=== PATIENT | male | born 1950 | race Caucasian/White ===

== ENCOUNTER 2023-07-19 00:56 | Emergency (ER) | payer MEDICARE ==
[~2023-07-19] VITALS: Ht 167.6 cm; Wt 88.5 kg
[2023-07-19 01:16] LABS: BASOPHILS ABSOLUTE AUTO 0.04 K/mm3 (0.00-0.23); BASOPHILS PERCENT AUTO 0 % (0-2); EOSINOPHILS ABSOLUTE AUTO 0.31 K/mm3 (0.00-0.68); EOSINOPHILS PERCENT AUTO 4 % (0-6); Hematocrit 37.6 % (37.0-53.0); Hemoglobin 12.3 g/dL (13.5-17.5); IMMATURE GRAN ABSOLUTE AUTO 0.02 K/mm3 (0.00-0.10); IMMATURE GRAN PERCENT AUTO 0 % (0-1); LYMPHOCYTES ABSOLUTE AUTO 3.06 K/mm3 (0.84-5.20); LYMPHOCYTES PERCENT AUTO 34 % (21-46); MONOCYTES ABSOLUTE AUTO 0.88 K/mm3 (0.16-1.47); MONOCYTES PERCENT AUTO 10 % (4-13); Mean Corpuscular HGB 31.7 pg (26.0-34.0); Mean Corpuscular HGB Conc 32.7 g/dL (31.5-36.5); Mean Corpuscular Volume 97 fL (80-100); Mean Platelet Volume 11.2 fL (9.1-12.4); NEUTROPHILS ABSOLUTE AUTO 4.63 K/mm3 (1.96-9.15); NEUTROPHILS PERCENT AUTO 52 % (41-73); Platelet Count 244 K/mm3 (150-400); RDW Coefficient Variation 13.4 % (11.7-14.2); RDW Standard Deviation 47.7 fL (35.1-46.3); Red Blood Cell Count 3.88 M/mm3 (4.30-5.90); White Blood Cell Count 8.94 K/mm3 (4.00-11.30)
[2023-07-19 01:33] LABS: Albumin/Globulin Ratio 1.3 (0.8-1.8); Bilirubin, Total 0.4 mg/dL (0.1-1.0); Bun/Creatinine Ratio 18.7 (12.0-20.0); Calcium, Blood 8.6 mg/dL (8.5-10.1); Creatinine, Blood 1.39 mg/dL (0.60-1.20); Globulin, Blood 3.1 g/dL (2.2-4.0); Potassium, Blood 4.3 mmol/L (3.5-5.5); Total Protein, Blood 7.1 g/dL (6.4-8.2)
[2023-07-19] MEDS ORDERED: ATOR80 PO (01:39)
[2023-07-19] MEDS ORDERED: Aspir 8181 MG PO (01:40)
[2023-07-19] MEDS ORDERED: METO50ER PO (01:42)
[2023-07-19] MEDS ORDERED: EZET10 PO (01:42)
[2023-07-19] MEDS ORDERED: LISI20 PO (01:43)
[2023-07-19] MEDS ORDERED: CLOP75 PO (01:43)
[2023-07-19] MEDS ORDERED: ALLO300 PO (01:43)
[2023-07-19] MEDS ORDERED: NITR.4SL SL (01:44)
[2023-07-19 02:21] LABS: Magnesium, Blood 2.2 mg/dL (1.6-2.4); Phosphorus, Blood 3.6 mg/dL (2.5-4.9)
[2023-07-19] MEDS ORDERED: FAMO20 PO (06:07)
[2023-07-19] MEDS ORDERED: ALMACONE SUSPE355 ML PO (06:07)
[2023-07-19 06:28] VITALS: BP 134/72
== END 2023-07-19 06:24 | disposition home or self-care (01) ==
LOC: ER 00:56
PROVIDERS: Emergency Medicine
DX: R07.89 Other chest pain (principal); I25.2 Old myocardial infarction
CPT/HCPCS: 71046; 71260; 80053; 83690; 83735; 84100; 84484; 85025; 85379; 93005; 93010; 99285-25; A9270; Q9967

== ENCOUNTER 2023-07-22 05:48 | Observation (INO) | payer MEDICARE ==
[~2023-07-22] VITALS: Ht 167.6 cm; Wt 88.5 kg
[~2023-07-22 05:48] MED LIST: ALLO300 PO; ALMACONE SUSPE355 ML PO; ATOR80 PO; Aspir 8181 MG PO; CLOP75 PO; EZET10 PO; FAMO20 PO; LISI20 PO; METO50ER PO; NITR.4SL SL
[2023-07-22 07:36] LABS: BASOPHILS ABSOLUTE AUTO 0.04 K/mm3 (0.00-0.23); BASOPHILS PERCENT AUTO 1 % (0-2); EOSINOPHILS ABSOLUTE AUTO 0.21 K/mm3 (0.00-0.68); EOSINOPHILS PERCENT AUTO 3 % (0-6); Hematocrit 38.6 % (37.0-53.0); Hemoglobin 12.5 g/dL (13.5-17.5); IMMATURE GRAN ABSOLUTE AUTO 0.02 K/mm3 (0.00-0.10); IMMATURE GRAN PERCENT AUTO 0 % (0-1); LYMPHOCYTES ABSOLUTE AUTO 2.45 K/mm3 (0.84-5.20); LYMPHOCYTES PERCENT AUTO 30 % (21-46); MONOCYTES ABSOLUTE AUTO 0.61 K/mm3 (0.16-1.47); MONOCYTES PERCENT AUTO 7 % (4-13); Mean Corpuscular HGB 31.5 pg (26.0-34.0); Mean Corpuscular HGB Conc 32.4 g/dL (31.5-36.5); Mean Corpuscular Volume 97 fL (80-100); Mean Platelet Volume 11.2 fL (9.1-12.4); NEUTROPHILS ABSOLUTE AUTO 4.98 K/mm3 (1.96-9.15); NEUTROPHILS PERCENT AUTO 60 % (41-73); Platelet Count 224 K/mm3 (150-400); RDW Coefficient Variation 13.2 % (11.7-14.2); RDW Standard Deviation 47.7 fL (35.1-46.3); Red Blood Cell Count 3.97 M/mm3 (4.30-5.90); White Blood Cell Count 8.31 K/mm3 (4.00-11.30)
[2023-07-22 08:03] LABS: Albumin, Blood 3.9 g/dL (3.4-5.0); Albumin/Globulin Ratio 1.2 (0.8-1.8); Bilirubin, Total 0.7 mg/dL (0.1-1.0); Bun/Creatinine Ratio 16.3 (12.0-20.0); Calcium, Blood 8.5 mg/dL (8.5-10.1); Creatinine, Blood 1.35 mg/dL (0.60-1.20); Globulin, Blood 3.2 g/dL (2.2-4.0); Magnesium, Blood 2.4 mg/dL (1.6-2.4); Potassium, Blood 4.5 mmol/L (3.5-5.5); Total Protein, Blood 7.1 g/dL (6.4-8.2)
[2023-07-22 08:31] LABS: Influenza A, PCR NEGATIVE (NEGATIVE); Influenza B, PCR NEGATIVE (NEGATIVE); Resp Syncytial Virus, PCR NEGATIVE (NEGATIVE); SARS-Cov-2 (COVID-19) PCR, MMC NEGATIVE (NEGATIVE)
[2023-07-22 15:18] VITALS: BP 185/81
--- NOTE | 2023-07-22 15:30 | NUR ---
Pt arrived from ED via wheelchair, a/ox4, pleasant and coopertive with care, follows commands well, up to bed indep, lungs are clear t/o, reports if he lays flat he starts coughing, and is still bringing up blood, on r/a, sats are over 90, hrr, bounding, no edema noted at this time, reports his feet do swell, maría hose placed on him, ppp+2, cap refill <3sec, vs stable, afebrile, iv site to rac is clear and patent, btx4, abd flat soft nontender, voids without diff, skin c/w/d, maew, radha, call light in reach.
--- NOTE | 2023-07-22 17:50 | NUR ---
"Spiritual care | Pt. request. pt. is awake in bed and welcomes my visit. Pt. is unsettled about waiting for results from the doctor. Seek to normalize the Pt. expereince as I listen with empathy and a calming presence. Pt. displays evidence of being reasonable. Shift the focus of the visit toward a life review, focusing on the Pts. service in the . Pastoral certified addiction counselor and support is given. Prayed with the Pt. Pt. verbalized gratitude for the spiritual care visit."
--- NOTE | 2023-07-22 18:24 | NUR ---
pt doing ok, no complaints of c.p. or coughing up blood at this time. no acute changes, finished stress test, ordered a tray after speaking with Dr. Stringer. call light in reach.
[2023-07-22 20:09] VITALS: BP 158/66
[2023-07-23 03:55] VITALS: BP 129/72
--- NOTE | 2023-07-23 04:54 | NUR ---
SHIFT SUMMARY. NO ACUTE CHANGES.PATIENT A/O X4, PLEASANT AND COOPERATIVE WITH CARE. PATIENT INDEPENDENT IN ROOM. DENIES CHEST PAIN/PRESSURE/TIGHTNESS. PATIENT SLEPT ON AND OFF T/O NIGHT, RESPIRATIONS EQUAL AND UNLABORED. PAIN ASSESSED-PATIENT DENIES PAIN. TELE IS ON, LEADS IN PLACE-PATIENT RUNNING SINUS GISELA AT 51. PATIENT STATES HE WOULD LIKE TO TALK WITH DOCTOR ABOUT WHAT CAUSED THE FLUID BUILD UP AND BLOOD BED IS LOCKED IN THE LOWEST POSITION WITH CALL LIGHT IN REACH FOR SAFETY. NO S/S OF DISTRESS NOTED AT THIS TIME.
[2023-07-23 05:34] LABS: BASOPHILS ABSOLUTE AUTO 0.05 K/mm3 (0.00-0.23); BASOPHILS PERCENT AUTO 1 % (0-2); EOSINOPHILS ABSOLUTE AUTO 0.21 K/mm3 (0.00-0.68); EOSINOPHILS PERCENT AUTO 3 % (0-6); Hematocrit 36.4 % (37.0-53.0); Hemoglobin 11.7 g/dL (13.5-17.5); IMMATURE GRAN ABSOLUTE AUTO 0.02 K/mm3 (0.00-0.10); IMMATURE GRAN PERCENT AUTO 0 % (0-1); LYMPHOCYTES ABSOLUTE AUTO 2.37 K/mm3 (0.84-5.20); LYMPHOCYTES PERCENT AUTO 31 % (21-46); MONOCYTES ABSOLUTE AUTO 0.63 K/mm3 (0.16-1.47); MONOCYTES PERCENT AUTO 8 % (4-13); Mean Corpuscular HGB 31.1 pg (26.0-34.0); Mean Corpuscular HGB Conc 32.1 g/dL (31.5-36.5); Mean Corpuscular Volume 97 fL (80-100); Mean Platelet Volume 11.1 fL (9.1-12.4); NEUTROPHILS ABSOLUTE AUTO 4.29 K/mm3 (1.96-9.15); NEUTROPHILS PERCENT AUTO 57 % (41-73); Platelet Count 214 K/mm3 (150-400); RDW Coefficient Variation 13.2 % (11.7-14.2); RDW Standard Deviation 47.2 fL (35.1-46.3); Red Blood Cell Count 3.76 M/mm3 (4.30-5.90); White Blood Cell Count 7.57 K/mm3 (4.00-11.30)
[2023-07-23 06:04] LABS: Albumin, Blood 3.6 g/dL (3.4-5.0); Albumin/Globulin Ratio 1.3 (0.8-1.8); Bilirubin, Total 0.8 mg/dL (0.1-1.0); Bun/Creatinine Ratio 17.6 (12.0-20.0); Calcium, Blood 8.7 mg/dL (8.5-10.1); Creatinine, Blood 1.59 mg/dL (0.60-1.20); Globulin, Blood 2.8 g/dL (2.2-4.0); Potassium, Blood 4.5 mmol/L (3.5-5.5); Total Protein, Blood 6.4 g/dL (6.4-8.2)
[2023-07-23 07:39] VITALS: BP 138/69
[2023-07-23 09:28] LABS: Specific Gravity, Urine 1.015 (1.003-1.022)
[2023-07-23] MEDS ORDERED: AMLO5 PO (14:30)
--- NOTE | 2023-07-23 15:12 | NUR ---
SHIFT/DISCHARGE SUMMARY Pt remains A&Ox3 this shift. VSS, denies any further pain. Ambulating independently. Voiding without difficulty. Tolerating diet. All discharge instructions reviewed with return verbal understanding. Pt to lobby independently.
[2023-07-24] MEDS ORDERED: FURO20 PO (21:14)
== END 2023-07-23 14:58 | disposition home or self-care (01) ==
LOC: ER 05:48 → ERHOLD 05:49 → MEDS 15:15
PROVIDERS: Family Medicine; Student in an Organized Health Care Education/Training Program; ADMIT Hospitalist
DX: R07.81 Pleurodynia (principal); N17.9 Acute kidney failure, unspecified; R79.89 Other specified abnormal findings of blood chemistry; R04.2 Hemoptysis; R06.02 Shortness of breath; R91.1 Solitary pulmonary nodule; Z66 Do not resuscitate; I25.10 Atherosclerotic heart disease of native coronary artery without angina pectoris; I11.0 Hypertensive heart disease with heart failure; I50.30 Unspecified diastolic (congestive) heart failure; E78.5 Hyperlipidemia, unspecified; I25.2 Old myocardial infarction; Z95.5 Presence of coronary angioplasty implant and graft; Z20.822 Contact with and (suspected) exposure to COVID-19
CPT/HCPCS: 0241U; 36415; 71046; 78452; 80053; 81003; 82570; 83690; 83735; 83880; 83930; 83935; 84145; 84300; 84443; 84484; 84540; 85025; 93005; 93010; 93017; 93306; 94640; 94664; 96372; 96374; 96375; 99285-25; A9270; A9500; G0378; J1650; J1885; J1940; J2785

== ENCOUNTER 2023-07-24 19:37 | Emergency (ER) | payer MEDICARE ==
[~2023-07-24] VITALS: Ht 167.6 cm; Wt 88.5 kg
[~2023-07-24 19:37] MED LIST changes: +AMLO5 PO
[2023-07-24 20:16] LABS: BASOPHILS ABSOLUTE AUTO 0.04 K/mm3 (0.00-0.23); BASOPHILS PERCENT AUTO 1 % (0-2); EOSINOPHILS ABSOLUTE AUTO 0.25 K/mm3 (0.00-0.68); EOSINOPHILS PERCENT AUTO 3 % (0-6); Hematocrit 38.3 % (37.0-53.0); Hemoglobin 12.5 g/dL (13.5-17.5); IMMATURE GRAN ABSOLUTE AUTO 0.01 K/mm3 (0.00-0.10); IMMATURE GRAN PERCENT AUTO 0 % (0-1); LYMPHOCYTES PERCENT AUTO 31 % (21-46); MONOCYTES ABSOLUTE AUTO 0.67 K/mm3 (0.16-1.47); MONOCYTES PERCENT AUTO 8 % (4-13); Mean Corpuscular HGB Conc 32.6 g/dL (31.5-36.5); Mean Corpuscular Volume 98 fL (80-100); Mean Platelet Volume 11.3 fL (9.1-12.4); NEUTROPHILS ABSOLUTE AUTO 4.93 K/mm3 (1.96-9.15); NEUTROPHILS PERCENT AUTO 57 % (41-73); Platelet Count 237 K/mm3 (150-400); RDW Coefficient Variation 13.2 % (11.7-14.2); RDW Standard Deviation 47.2 fL (35.1-46.3); Red Blood Cell Count 3.91 M/mm3 (4.30-5.90)
[2023-07-24 20:32] LABS: Albumin, Blood 3.8 g/dL (3.4-5.0); Albumin/Globulin Ratio 1.2 (0.8-1.8); Bilirubin, Total 0.4 mg/dL (0.1-1.0); Calcium, Blood 8.4 mg/dL (8.5-10.1); Creatinine, Blood 1.78 mg/dL (0.60-1.20); Globulin, Blood 3.3 g/dL (2.2-4.0); Potassium, Blood 4.4 mmol/L (3.5-5.5); Total Protein, Blood 7.1 g/dL (6.4-8.2)
[2023-07-24 21:01] VITALS: BP 128/95
[2023-07-24] MEDS ORDERED: FURO20 PO (21:14)
== END 2023-07-24 21:27 | disposition home or self-care (01) ==
LOC: ER 19:37
PROVIDERS: Student in an Organized Health Care Education/Training Program
DX: Z76.0 Encounter for issue of repeat prescription (principal); I11.0 Hypertensive heart disease with heart failure; I50.9 Heart failure, unspecified; E78.5 Hyperlipidemia, unspecified; I25.2 Old myocardial infarction; Z79.82 Long term (current) use of aspirin; Z79.899 Other long term (current) drug therapy; Z88.5 Allergy status to narcotic agent; Z95.5 Presence of coronary angioplasty implant and graft
CPT/HCPCS: 71046; 80053; 83690; 84484; 85025; 93005; 93010; 99283-25; A9270